=== PATIENT | male | born 1940 | race African-American/Black ===

== ENCOUNTER 2018-06-07 11:47 | Inpatient (IN) | payer MEDICARE ==
[2018-06-07 13:14] LABS: Basophils % (Auto) 0.2 % (0.0-1.8); Eosinophils # (Auto) 0.2 K/mm3 (0.0-0.4); Eosinophils % (Auto) 1.8 % (0.0-4.3); Hemoglobin 12.2 gm/dl (11.8-15.2); Lymphocytes # (Auto) 2.1 K/mm3 (1.2-5.4); Lymphocytes % (Auto) 21.5 % (13.4-35.0); Mean Corpuscular HGB Conc 34 % (32-34); Mean Corpuscular Volume 94 fl (84-94); Monocytes # (Auto) 0.5 K/mm3 (0.0-0.8); Monocytes % (Auto) 5.5 % (0.0-7.3); Platelet Count 290 K/mm3 (140-440); Red Blood Count 3.85 M/mm3 (3.65-5.03)
[2018-06-07 13:27] LABS: INR 0.91 (0.87-1.13)
[2018-06-07 13:28] LABS: Partial Thromboplastin Time 26.8 Sec. (24.2-36.6)
--- NOTE | 2018-06-07 13:41 | XRay Report ---
AP CHEST: HISTORY: Hypertension Borderline to mild cardiomegaly and small left pleural effusion are suspected. The lungs are clear otherwise. No evidence for pneumonia or pneumothorax. The bony structures are grossly intact. IMPRESSION: Borderline to mild cardiomegaly and small left pleural effusion.
--- NOTE | 2018-06-07 13:41 | Emergency Department Report ---
ED General Adult HPI - General Chief complaint: Weakness Stated complaint: GENERAL WEAKNESS Time Seen by Provider: 06/07/18 12:34 Source: EMS Mode of arrival: Stretcher Limitations: Altered Mental Status - History of Present Illness Initial comments: This is a 78 year old Syriac gentleman who does not speak Malaysian. History is obtained with the assistance of a events and promotions assistant. The patient apparently was waiting to be seen at [facility] when he became weak and apparently passed out. Thus, EMS was summoned. Paramedics arrived at the scene. They relate to me that the patient's blood pressure was about 40 systolic and his heart rate was likewise about 40. They state that they gave him one dose of atropine which improved both his heart rate to the mid 50s and blood pressure returned to the normal range. The patient arrives in the emergency department awake and alert. He is not complaining of any specific pain. He did have some nausea prior to arrival. He did not complain of any shortness of breath. It remains somewhat unclear as to why the patient was referred to cardiology to begin with. Family members and the patient can't exactly specify the indication. However he is noted to have a left bundle branch block which is of uncertain recency. Review of the available records indicate an outpatient visit in 2014 but no prior EKG. -: Sudden Severity scale (0 -10): 0 Consistency: now resolved Associated Symptoms: denies other symptoms - Related Data Allergies Allergy/AdvReac Type Severity Reaction Status Date / Time No Known Allergies Allergy Unverified 06/07/18 12:14 ED Review of Systems ROS: Stated complaint: GENERAL WEAKNESS Other details as noted in HPI Constitutional: denies: chills, fever Eyes: denies: eye pain, eye discharge, vision change ENT: denies: ear pain, throat pain Respiratory: denies: cough, shortness of breath, wheezing Cardiovascular: syncope. denies: chest pain, palpitations Endocrine: no symptoms reported Gastrointestinal: nausea. denies: abdominal pain, vomiting, diarrhea Genitourinary: denies: urgency, dysuria Musculoskeletal: denies: back pain, joint swelling, arthralgia Skin: denies: rash, lesions Neurological: denies: headache, weakness, paresthesias Psychiatric: denies: anxiety, depression Hematological/Lymphatic: denies: easy bleeding, easy bruising ED Past Medical Hx - Past Medical History Previous Medical History?: Yes Hx Hypertension: Yes Additional medical history: hyperlipidemia. LBBB - Surgical History Past Surgical History?: No - Social History Smoking Status: Never Smoker Substance Use Type: None ED Physical Exam - General Limitations: No Limitations General appearance: alert, in no apparent distress - Head Head exam: Present: atraumatic, normocephalic - Eye Eye exam: Present: normal appearance. Absent: scleral icterus - ENT ENT exam: Present: mucous membranes moist - Neck Neck exam: Present: normal inspection. Absent: tenderness, meningismus - Respiratory Respiratory exam: Present: normal lung sounds bilaterally. Absent: respiratory distress - Cardiovascular Cardiovascular Exam: Present: normal rhythm, bradycardia. Absent: systolic murmur, diastolic murmur, rubs, gallop - GI/Abdominal GI/Abdominal exam: Present: soft, normal bowel sounds. Absent: distended, tenderness, guarding, rebound, rigid - Rectal Rectal exam: Present: deferred - Extremities Exam Extremities exam: Present: normal inspection - Back Exam Back exam: Present: normal inspection - Neurological Exam Neurological exam: Present: alert, oriented X3, CN II-XII intact. Absent: motor sensory deficit - Psychiatric Psychiatric exam: Present: normal affect, normal mood - Skin Skin exam: Present: warm, dry, intact, normal color. Absent: rash ED Course Vital Signs 06/07/18 06/07/18 06/07/18 12:15 12:30 12:31 Temperature 97.4 F L 97.4 F L Pulse Rate 68 68 Respiratory 16 20 16 Rate Blood Pressure 130/55 Blood Pressure 130/55 [Left] O2 Sat by Pulse 100 100 Oximetry - Reevaluation(s) Reevaluation #1: Patient remains hemodynamically stable. Cardiology consultation with Dr. Whaley. Case was discussed. Patient will be admitted to Dr. Bro, the hospitalist. 06/07/18 14:09 Reevaluation #2: The patient was found to be hyperkalemic with a creatinine of 2.0 and a BUN of 37, potassium of 5.6. With the patient's left bundle-branch block and bradycardia, we will provide Kayexalate and I think he should be able to tolerate one amp of bicarbonate. In addition I will give him some slow IV fluid in the hopes to improve his prerenal condition. I will consult a nurse private duty. The patient will be admitted to Dr. Bro the hospitalist with cardiology consultation. 06/07/18 14:16 Reevaluation #3: It is a possibility patient has previously seen a nurse private duty but he does not recall the name. Dr. Phillip Manzo is his primary care provider. I was unable to reach anyone at Dr. Phillip Manzo's office however. Consultation will be obtained from the nurse private duty web production designer Dr. Rose. 06/07/18 14:22 06/07/18 14:22 ED Medical Decision Making - Lab Data Result diagrams: 06/07/18 12:50 06/07/18 12:50 Laboratory Results - last 24 hr 06/07/18 06/07/18 06/07/18 12:50 12:50 12:50 WBC 9.8 RBC 3.85 Hgb 12.2 Hct 36.0 MCV 94 MCH 32 MCHC 34 RDW 13.0 L Plt Count 290 Lymph % (Auto) 21.5 [place] % (Auto) 5.5 Eos % (Auto) 1.8 Baso % (Auto) 0.2 Lymph # 2.1 [place] # 0.5 Eos # 0.2 Baso # 0.0 Seg Neutrophils % 71.0 H Seg Neutrophils # 7.0 PT 12.7 INR 0.91 APTT 26.8 Plasma/Serum Alcohol < 0.01 Laboratory Results - last 24 hr 06/07/18 06/07/18 06/07/18 12:50 12:50 12:50 WBC 9.8 RBC 3.85 Hgb 12.2 Hct 36.0 MCV 94 MCH 32 MCHC 34 RDW 13.0 L Plt Count 290 Lymph % (Auto) 21.5 [place] % (Auto) 5.5 Eos % (Auto) 1.8 Baso % (Auto) 0.2 Lymph # 2.1 [place] # 0.5 Eos # 0.2 Baso # 0.0 Seg Neutrophils % 71.0 H Seg Neutrophils # 7.0 PT INR APTT Sodium 140 Potassium 5.6 H Chloride 107.4 H Carbon Dioxide 19 L Anion Gap 19 BUN 37 H Creatinine 2.0 H Estimated GFR 32 BUN/Creatinine Ratio 19 Glucose 92 POC Glucose Calcium 9.3 Magnesium Total Bilirubin 0.40 AST 20 ALT 16 Alkaline Phosphatase 52 Total Creatine Kinase CK-MB (CK-2) CK-MB (CK-2) Rel Index C-Reactive Protein NT-Pro-B Natriuret Pep Total Protein 6.0 L Albumin 4.1 Albumin/Globulin Ratio 2.2 TSH Free T4 Plasma/Serum Alcohol < 0.01 06/07/18 06/07/18 06/07/18 12:50 12:50 12:50 WBC RBC Hgb Hct MCV MCH MCHC RDW Plt Count Lymph % (Auto) [place] % (Auto) Eos % (Auto) Baso % (Auto) Lymph # [place] # Eos # Baso # Seg Neutrophils % Seg Neutrophils # PT 12.7 INR 0.91 APTT 26.8 Sodium Potassium Chloride Carbon Dioxide Anion Gap BUN Creatinine Estimated GFR BUN/Creatinine Ratio Glucose POC Glucose Calcium Magnesium 2.10 Total Bilirubin AST ALT Alkaline Phosphatase Total Creatine Kinase 68 CK-MB (CK-2) 1.7 CK-MB (CK-2) Rel Index 2.5 C-Reactive Protein NT-Pro-B Natriuret Pep 75.04 Total Protein Albumin Albumin/Globulin Ratio TSH 0.270 Free T4 1.36 Plasma/Serum Alcohol 06/07/18 06/07/18 12:50 14:02 WBC RBC Hgb Hct MCV MCH MCHC RDW Plt Count Lymph % (Auto) [place] % (Auto) Eos % (Auto) Baso % (Auto) Lymph # [place] # Eos # Baso # Seg Neutrophils % Seg Neutrophils # PT INR APTT Sodium Potassium Chloride Carbon Dioxide Anion Gap BUN Creatinine Estimated GFR BUN/Creatinine Ratio Glucose POC Glucose 94 Calcium Magnesium Total Bilirubin AST ALT Alkaline Phosphatase Total Creatine Kinase CK-MB (CK-2) CK-MB (CK-2) Rel Index C-Reactive Protein 0.30 NT-Pro-B Natriuret Pep Total Protein Albumin Albumin/Globulin Ratio TSH Free T4 Plasma/Serum Alcohol Laboratory Results - last 24 hr 06/07/18 06/07/18 06/07/18 12:50 12:50 12:50 WBC 9.8 RBC 3.85 Hgb 12.2 Hct 36.0 MCV 94 MCH 32 MCHC 34 RDW 13.0 L Plt Count 290 Lymph % (Auto) 21.5 [place] % (Auto) 5.5 Eos % (Auto) 1.8 Baso % (Auto) 0.2 Lymph # 2.1 [place] # 0.5 Eos # 0.2 Baso # 0.0 Seg Neutrophils % 71.0 H Seg Neutrophils # 7.0 PT INR APTT Sodium 140 Potassium 5.6 H Chloride 107.4 H Carbon Dioxide 19 L Anion Gap 19 BUN 37 H Creatinine 2.0 H Estimated GFR 32 BUN/Creatinine Ratio 19 Glucose 92 POC Glucose Calcium 9.3 Magnesium Total Bilirubin 0.40 AST 20 ALT 16 Alkaline Phosphatase 52 Total Creatine Kinase CK-MB (CK-2) CK-MB (CK-2) Rel Index C-Reactive Protein NT-Pro-B Natriuret Pep Total Protein 6.0 L Albumin 4.1 Albumin/Globulin Ratio 2.2 TSH Free T4 Urine Color Urine Turbidity Urine pH Ur Specific [place] Urine Protein Urine Glucose (UA) Urine Ketones Urine Blood Urine Nitrite Urine Bilirubin Urine Urobilinogen Ur Leukocyte Esterase Urine WBC (Auto) Urine RBC (Auto) U Epithel Cells (Auto) Urine Mucus Plasma/Serum Alcohol < 0.01 06/07/18 06/07/18 06/07/18 12:50 12:50 12:50 WBC RBC Hgb Hct MCV MCH MCHC RDW Plt Count Lymph % (Auto) [place] % (Auto) Eos % (Auto) Baso % (Auto) Lymph # [place] # Eos # Baso # Seg Neutrophils % Seg Neutrophils # PT 12.7 INR 0.91 APTT 26.8 Sodium Potassium Chloride Carbon Dioxide Anion Gap BUN Creatinine Estimated GFR BUN/Creatinine Ratio Glucose POC Glucose Calcium Magnesium 2.10 Total Bilirubin AST ALT Alkaline Phosphatase Total Creatine Kinase 68 CK-MB (CK-2) 1.7 CK-MB (CK-2) Rel Index 2.5 C-Reactive Protein NT-Pro-B Natriuret Pep 75.04 Total Protein Albumin Albumin/Globulin Ratio TSH 0.270 Free T4 1.36 Urine Color Urine Turbidity Urine pH Ur Specific [place] Urine Protein Urine Glucose (UA) Urine Ketones Urine Blood Urine Nitrite Urine Bilirubin Urine Urobilinogen Ur Leukocyte Esterase Urine WBC (Auto) Urine RBC (Auto) U Epithel Cells (Auto) Urine Mucus Plasma/Serum Alcohol 06/07/18 06/07/18 06/07/18 12:50 13:31 14:02 WBC RBC Hgb Hct MCV MCH MCHC RDW Plt Count Lymph % (Auto) [place] % (Auto) Eos % (Auto) Baso % (Auto) Lymph # [place] # Eos # Baso # Seg Neutrophils % Seg Neutrophils # PT INR APTT Sodium Potassium Chloride Carbon Dioxide Anion Gap BUN Creatinine Estimated GFR BUN/Creatinine Ratio Glucose POC Glucose 94 Calcium Magnesium Total Bilirubin AST ALT Alkaline Phosphatase Total Creatine Kinase CK-MB (CK-2) CK-MB (CK-2) Rel Index C-Reactive Protein 0.30 NT-Pro-B Natriuret Pep Total Protein Albumin Albumin/Globulin Ratio TSH Free T4 Urine Color Yellow Urine Turbidity Clear Urine pH 7.0 Ur Specific [place] 1.010 Urine Protein 30 mg/dl Urine Glucose (UA) Neg Urine Ketones Neg Urine Blood Neg Urine Nitrite Neg Urine Bilirubin Neg Urine Urobilinogen < 2.0 Ur Leukocyte Esterase Neg Urine WBC (Auto) 1.0 Urine RBC (Auto) < 1.0 U Epithel Cells (Auto) < 1.0 Urine Mucus Few Plasma/Serum Alcohol - EKG Data -: EKG Interpreted by In EKG shows normal: sinus rhythm Rate: bradycardia - EKG Data Interpretation: other (left bundle branch block) - Radiology Data Radiology results: report reviewed Mild cardiomegaly with small pericardial effusion. Critical care attestation.: If time is entered above; I have spent that time in minutes in the direct care of this critically ill patient, excluding procedure time. ED Disposition Clinical Impression: Hypotensive episode, Hyperkalemia, Renal insufficiency, Left bundle branch block (LBBB) Syncope Qualifiers: Syncope type: unspecified Qualified Code(s): R55 - Syncope and collapse Disposition: 09 OP ADMIT IP TO THIS HOSP Is pt being admited?: Yes Does the pt Need Aspirin: Yes Condition: Stable Instructions: Syncope (ED) Referrals: PRIMARY CARE, [Primary Care Provider] - 3-5 Days Time of Disposition: 14:50
[2018-06-07 13:44] LABS: Creatine Kinase MB 1.7 ng/mL (0.0-4.0)
--- NOTE | 2018-06-07 13:44 | Consultation ---
History of Present Illness Consult date: 06/07/18 Consult reason: chest pain History of present illness: 78-year-old patient who developed acute diaphoresis, hypotension and transient bradycardia while waiting in his doctor's office during a routine visit. He was treated with atropine by the linking machine operator, brought to the emergency room, ECG in the emergency room is in normal sinus rhythm with left bundle-branch block. The chronicity of his left bundle-branch block is uncertain, patient's records a re not available at this time he is a poor historian. Past History Past Medical History: other Medications and Allergies Allergies Allergy/AdvReac Type Severity Reaction Status Date / Time No Known Allergies Allergy Unverified 06/07/18 12:14 Review of Systems Cardiovascular: syncope Physical Examination Vital Signs Temp Pulse Resp BP Pulse Ox 97.4 F L 68 16 130/55 100 06/07/18 12:15 06/07/18 12:15 06/07/18 12:15 06/07/18 12:15 06/07/18 12:15 General appearance: no acute distress HEENT: Positive: PERRL Neck: Positive: neck supple Cardiac: Positive: Reg Rate and Rhythm Lungs: Positive: Decreased Breath Sounds Neuro: Positive: Grossly Intact Abdomen: Positive: Soft Male genitourinary: Positive: deferred Extremities: Absent: edema Results 06/07/18 12:50 Coagulation 06/07/18 Range/Units 12:50 PT 12.7 (12.2-14.9) Sec. INR 0.91 (0.87-1.13) APTT 26.8 (24.2-36.6) Sec. CBC 06/07/18 Range/Units 12:50 WBC 9.8 (4.5-11.0) K/mm3 RBC 3.85 (3.65-5.03) M/mm3 Hgb 12.2 (11.8-15.2) gm/dl Hct 36.0 (35.5-45.6) % Plt Count 290 (140-440) K/mm3 Lymph # 2.1 (1.2-5.4) K/mm3 [place] # 0.5 (0.0-0.8) K/mm3 Eos # 0.2 (0.0-0.4) K/mm3 Baso # 0.0 (0.0-0.1) K/mm3 EKG interpretations - Telemetry EKG Rhythm: Sinus Rhythm Assessment and Plan - Patient Problems (1) Syncope Current Visit: Yes Status: Acute Plan to address problem: Syncope appears historically vasovagal, patient is to be admitted for further cardiac workup, and review of his previous cardiac history. (2) Abnormal ECG Current Visit: Yes Status: Acute Plan to address problem: EKG is left bundle-branch block, uncertain chronicity. We will request old ECGs for comparative purposes. Further cardiac evaluation will depend on clinical course and the review of his prior cardiac evaluation.
[2018-06-07 13:47] LABS: Albumin 4.1 g/dL (3.9-5); Calcium 9.3 mg/dL (8.4-10.2)
[2018-06-07 13:51] LABS: Free T4 (Free Thyroxine) 1.36 ng/dL (0.76-1.46)
[2018-06-07 14:11] LABS: Bilirubin,Urine NEG (Negative); Blood,Urine NEG (Negative); Color,Urine Yellow (Yellow); Mucus,Urine FEW /HPF; RBC,Urine < 1.0 /HPF (0.0-6.0); Urobilinogen,Urine < 2.0 mg/dL (<2.0)
[2018-06-07] MEDS ORDERED: SODIUM BICARBONATE IV ONE ×2 (14:11→15:00)
[2018-06-07] MEDS ORDERED: NACL 0.9% 1000 ML 1,000 ML IV ONE (14:13)
[2018-06-07] MEDS ORDERED: KIONEX PO ONE (14:13)
[2018-06-07] MEDS ORDERED: BABY ASPIRIN PO ONE (14:50)
[2018-06-07 14:55] LABS: Amphetamine Screen,Urine PRESUMPTIVE NEGATIVE; Benzodiazepines Screen,Urine PRESUMPTIVE NEGATIVE; Cannabinoid Screen,Urine PRESUMPTIVE NEGATIVE; Cocaine Screen,Urine PRESUMPTIVE NEGATIVE; Methadone Screen,Urine PRESUMPTIVE NEGATIVE; Opiate Screen,Urine PRESUMPTIVE NEGATIVE
--- NOTE | 2018-06-07 15:15 | Cat Scan Report ---
CT HEAD WITHOUT CONTRAST: HISTORY: Syncope. TECHNIQUE: Sequential CT images without contrast. FINDINGS: Images obtained show bilateral prominence of the sulci and ventricles. There are no abnormal intra- or extra-axial blood or fluid collections. There are no focal masses or evidence of mass effect. The edwards white matter differentiation appears within normal limits. Regions of periventricular decreased attenuation are consistent with microangiopathic ischemic disease. The posterior fossa structures including the fourth ventricle, cerebellum, and brainstem appear normal. IMPRESSION: Evidence of atrophy and microangiopathic ischemic disease. No acute intracranial process noted.
[2018-06-07] MEDS ORDERED: ZOFRAN IV PRN ×2 (15:34→23:43)
[2018-06-07] MEDS ORDERED: TYLENOL PO PRN ×2 (15:34→23:43)
[2018-06-07] MEDS ORDERED: SODIUM CHLORIDE FLUSH SYRINGE 10 ML IV PRN ×2 (15:34→23:43)
[2018-06-07] MEDS ORDERED: PERCOCET 5/325 PO PRN (15:34)
--- NOTE | 2018-06-07 15:34 | History and Physical Report ---
History of Present Illness Date of examination: 06/07/18 Date of admission: 06/07/18 Chief complaint: Syncope in Bow Making Machine Operator office History of present illness: History of Present Illness: 78 y/o male sent from [facility] for passing out in their office associated with low BP and Low HR. Family of poor historians.Unclear why he went to [facility] for eval .He has HTN and HLD. No chest pain or SOB. Past Medical History Previous Medical History?: Yes Hx Hypertension: Yes Additional medical history: hyperlipidemia. LBBB Surgical History Past Surgical History?: No Social History Smoking Status: Never Smoker Substance Use Type: None Family Hx Htn Past History Past Medical History: other Medications and Allergies Allergies Allergy/AdvReac Type Severity Reaction Status Date / Time No Known Allergies Allergy Unverified 06/07/18 12:14 Home Medications Medication Instructions Recorded Confirmed Last Taken Type No Known Home Medications [No 06/08/18 06/08/18 Unknown History Reported Home Medications] Active Meds: Active Medications Sodium Chloride (Nacl 0.9% 1000 Ml) 1,000 mls @ 125 mls/hr IV ONCE ONE Stop: 06/07/18 22:12 Last Admin: 06/07/18 14:50 Dose: 125 mls/hr Documented by: Review of Systems Constitutional: no weight loss, no weight gain, no fever, no chills Ears, nose, mouth and throat: no hoarseness, no sore throat Cardiovascular: syncope, lightheadedness, no chest pain, no orthopnea, no palpitations, no rapid/irregular heart beat, no shortness of breath, no dyspnea on exertion, no paroxysmal nocturnal dyspnea Respiratory: no cough, no cough with sputum, no excessive sputum Gastrointestinal: no abdominal pain, no nausea, no vomiting, no diarrhea Genitourinary Male: no dysuria, no hematuria, no flank pain, no discharge, no urinary frequency Rectal: no pain Musculoskeletal: no neck stiffness, no neck pain, no shooting arm pain, no arm numbness/tingling Integumentary: no rash, no pruritis, no redness Neurological: syncope, no head injury, no transient paralysis, no paralysis, no seizures Psychiatric: no anxiety, no memory loss, no change in sleep habits, no sleep disturbances, no insomnia Endocrine: no cold intolerance, no heat intolerance, no polyphagia, no excessive thirst, no polydipsia, no polyuria Hematologic/Lymphatic: no easy bruising, no easy bleeding Allergic/Immunologic: no urticaria, no allergic rhinitis, no wheezing Exam - Constitutional Vitals: Temp Pulse Resp BP Pulse Ox 97.4 F L 68 16 130/55 100 06/07/18 12:30 06/07/18 12:30 06/07/18 12:31 06/07/18 12:30 06/07/18 12:30 General appearance: Present: no acute distress, well-nourished - EENT Eyes: Present: PERRL ENT: hearing intact, clear oral mucosa - Neck Neck: Present: supple, normal ROM - Respiratory Respiratory effort: normal Respiratory: bilateral: CTA - Cardiovascular Heart rate: 78 Rhythm: regular Heart Sounds: Present: S1 & S2. Absent: rub, click - Extremities Extremities: pulses symmetrical, No edema Peripheral Pulses: within normal limits - Abdominal General gastrointestinal: Present: soft, non-tender, non-distended, normal bowel sounds Male genitourinary: Present: normal - Rectal Rectal Exam: deferred - Integumentary Integumentary: Present: clear, warm, dry - Musculoskeletal Musculoskeletal: gait normal, strength equal bilaterally - Psychiatric Psychiatric: appropriate mood/affect, intact judgment & insight - Neurologic Neurologic: CNII-XII intact, moves all extremities - Allied Health Allied health notes reviewed: nursing, case management Results - Labs CBC & Chem 7: 06/08/18 05:05 06/08/18 05:20 Labs: Laboratory Last Values WBC 9.8 K/mm3 (4.5-11.0) 06/07/18 12:50 RBC 3.85 M/mm3 (3.65-5.03) 06/07/18 12:50 Hgb 12.2 gm/dl (11.8-15.2) 06/07/18 12:50 Hct 36.0 % (35.5-45.6) 06/07/18 12:50 MCV 94 fl (84-94) 06/07/18 12:50 MCH 32 pg (28-32) 06/07/18 12:50 MCHC 34 % (32-34) 06/07/18 12:50 RDW 13.0 % (13.2-15.2) L 06/07/18 12:50 Plt Count 290 K/mm3 (140-440) 06/07/18 12:50 Lymph % (Auto) 21.5 % (13.4-35.0) 06/07/18 12:50 [place] % (Auto) 5.5 % (0.0-7.3) 06/07/18 12:50 Eos % (Auto) 1.8 % (0.0-4.3) 06/07/18 12:50 Baso % (Auto) 0.2 % (0.0-1.8) 06/07/18 12:50 Lymph # 2.1 K/mm3 (1.2-5.4) 06/07/18 12:50 [place] # 0.5 K/mm3 (0.0-0.8) 06/07/18 12:50 Eos # 0.2 K/mm3 (0.0-0.4) 06/07/18 12:50 Baso # 0.0 K/mm3 (0.0-0.1) 06/07/18 12:50 Seg Neutrophils % 71.0 % (40.0-70.0) H 06/07/18 12:50 Seg Neutrophils # 7.0 K/mm3 (1.8-7.7) 06/07/18 12:50 ESR 23 mm/Hr (0-20) 06/07/18 12:50 PT 12.7 Sec. (12.2-14.9) 06/07/18 12:50 INR 0.91 (0.87-1.13) 06/07/18 12:50 APTT 26.8 Sec. (24.2-36.6) 06/07/18 12:50 Sodium 140 mmol/L (137-145) 06/07/18 12:50 Potassium 5.6 mmol/L (3.6-5.0) H 06/07/18 12:50 Chloride 107.4 mmol/L (98-107) H 06/07/18 12:50 Carbon Dioxide 19 mmol/L (22-30) L 06/07/18 12:50 Anion Gap 19 mmol/L 06/07/18 12:50 BUN 37 mg/dL (9-20) H 06/07/18 12:50 Creatinine 2.0 mg/dL (0.8-1.5) H 06/07/18 12:50 Estimated GFR 32 ml/min 06/07/18 12:50 BUN/Creatinine Ratio 19 % 06/07/18 12:50 Glucose 92 mg/dL (75-100) 06/07/18 12:50 POC Glucose 94 (70-105) 06/07/18 14:02 Calcium 9.3 mg/dL (8.4-10.2) 06/07/18 12:50 Magnesium 2.10 mg/dL (1.7-2.3) 06/07/18 12:50 Total Bilirubin 0.40 mg/dL (0.1-1.2) 06/07/18 12:50 AST 20 units/L (5-40) 06/07/18 12:50 ALT 16 units/L (7-56) 06/07/18 12:50 Alkaline Phosphatase 52 units/L (35-129) 06/07/18 12:50 Total Creatine Kinase 68 units/L (55-170) 06/07/18 12:50 CK-MB (CK-2) 1.7 ng/mL (0.0-4.0) 06/07/18 12:50 CK-MB (CK-2) Rel Index 2.5 (0-4) 06/07/18 12:50 C-Reactive Protein 0.30 mg/dL (0.00-1.30) 06/07/18 12:50 NT-Pro-B Natriuret Pep 75.04 pg/mL (0-900) 06/07/18 12:50 Total Protein 6.0 g/dL (6.3-8.2) L 06/07/18 12:50 Albumin 4.1 g/dL (3.9-5) 06/07/18 12:50 Albumin/Globulin Ratio 2.2 % 06/07/18 12:50 TSH 0.270 mlU/mL (0.270-4.200) 06/07/18 12:50 Free T4 1.36 ng/dL (0.76-1.46) 06/07/18 12:50 Urine Color Yellow (Yellow) 06/07/18 13:31 Urine Turbidity Clear (Clear) 06/07/18 13:31 Urine pH 7.0 (5.0-7.0) 06/07/18 13:31 Ur Specific [place] 1.010 (1.003-1.030) 06/07/18 13:31 Urine Protein 30 mg/dl mg/dL (Negative) 06/07/18 13:31 Urine Glucose (UA) Neg mg/dL (Negative) 06/07/18 13:31 Urine Ketones Neg mg/dL (Negative) 06/07/18 13:31 Urine Blood Neg (Negative) 06/07/18 13:31 Urine Nitrite Neg (Negative) 06/07/18 13:31 Urine Bilirubin Neg (Negative) 06/07/18 13:31 Urine Urobilinogen < 2.0 mg/dL (<2.0) 06/07/18 13:31 Ur Leukocyte Esterase Neg (Negative) 06/07/18 13:31 Urine WBC (Auto) 1.0 /HPF (0.0-6.0) 06/07/18 13:31 Urine RBC (Auto) < 1.0 /HPF (0.0-6.0) 06/07/18 13:31 U Epithel Cells (Auto) < 1.0 /HPF (0-13.0) 06/07/18 13:31 Urine Mucus Few /HPF 06/07/18 13:31 Urine Opiates Screen Presumptive negative 06/07/18 13:31 Urine Methadone Screen Presumptive negative 06/07/18 13:31 Ur Barbiturates Screen Presumptive negative 06/07/18 13:31 Ur Phencyclidine Scrn Presumptive negative 06/07/18 13:31 Ur Amphetamines Screen Presumptive negative 06/07/18 13:31 U Benzodiazepines Scrn Presumptive negative 06/07/18 13:31 Urine Cocaine Screen Presumptive negative 06/07/18 13:31 U Marijuana (THC) Screen Presumptive negative 06/07/18 13:31 Drugs of Abuse Note Disclamer 06/07/18 13:31 Plasma/Serum Alcohol < 0.01 % (0-0.07) 06/07/18 12:50 Short CBC 06/07/18 06/08/18 Range/Units 12:50 05:05 WBC 9.8 8.4 (4.5-11.0) K/mm3 Hgb 12.2 11.7 L (11.8-15.2) gm/dl Hct 36.0 34.1 L (35.5-45.6) % Plt Count 290 270 (140-440) K/mm3 BMP 06/07/18 06/08/18 12:50 05:20 Sodium 140 143 Potassium 5.6 H 4.7 Chloride 107.4 H 109.6 H Carbon Dioxide 19 L 23 BUN 37 H 28 H Creatinine 2.0 H 1.6 H Glucose 92 91 Calcium 9.3 8.4 Cardiac Enzymes 06/07/18 Range/Units 12:50 Total Creatine Kinase 68 (55-170) units/L CK-MB (CK-2) 1.7 (0.0-4.0) ng/mL Liver Function 06/07/18 06/08/18 Range/Units 12:50 05:20 Total Bilirubin 0.40 0.40 (0.1-1.2) mg/dL AST 20 19 (5-40) units/L ALT 16 13 (7-56) units/L Alkaline Phosphatase 52 45 (35-129) units/L Albumin 4.1 3.7 L (3.9-5) g/dL Urine 06/07/18 Range/Units 13:31 Urine Color Yellow (Yellow) Urine pH 7.0 (5.0-7.0) Ur Specific [place] 1.010 (1.003-1.030) Urine Protein 30 mg/dl (Negative) mg/dL Urine Glucose (UA) Neg (Negative) mg/dL - Imaging and Cardiology EKG: report reviewed Imaging and Cardiology: EKG SINUS RHYTHM HR 70/min LEFT BUNDLE BRANCH BLOCK CT Head IMPRESSION: Evidence of atrophy and microangiopathic ischemic disease. No acute intracranial process noted. CXr IMPRESSION: Borderline to mild cardiomegaly and small left pleural effusion. Assessment and Plan Advance Directives: Yes (Full code) - Patient Problems (1) Syncope Current Visit: Yes Status: Acute Qualifiers: Syncope type: unspecified Qualified Code(s): R55 - Syncope and collapse Plan to address problem: Probably vasovagal Syncope w/u including CDS ECHO and Lexiscan (2) Left bundle branch block (LBBB) Current Visit: Yes Status: Chronic (3) Hyperkalemia Current Visit: Yes Status: Acute Plan to address problem: Treated (4) NIECY (acute kidney injury) Current Visit: Yes Status: Acute Plan to address problem: IV Fluids foer now (5) HTN (hypertension) Current Visit: Yes Status: Chronic Plan to address problem: Initiate antihypertensives if necessary (6) DVT prophylaxis Current Visit: Yes Status: Acute Plan to address problem: on Lovenox
[2018-06-08] MEDS: NACL 0.9% 1000 ML 1,000 ML IV SCH (02:36)
[2018-06-08] MEDS: SODIUM CHLORIDE FLUSH SYRINGE 10 ML IV SCH ×4 (02:37→22:44)
[2018-06-08 05:37] LABS: Basophils % (Auto) 0.2 % (0.0-1.8); Eosinophils # (Auto) 0.2 K/mm3 (0.0-0.4); Eosinophils % (Auto) 2.4 % (0.0-4.3); Hematocrit 34.1 % (35.5-45.6); Hemoglobin 11.7 gm/dl (11.8-15.2); Lymphocytes # (Auto) 2.3 K/mm3 (1.2-5.4); Mean Corpuscular HGB Conc 35 % (32-34); Mean Corpuscular Volume 94 fl (84-94); Monocytes # (Auto) 0.6 K/mm3 (0.0-0.8); Monocytes % (Auto) 7.5 % (0.0-7.3); Platelet Count 270 K/mm3 (140-440); Red Blood Count 3.63 M/mm3 (3.65-5.03); Red Cell Distribution Width 13.2 % (13.2-15.2)
[2018-06-08 06:01] LABS: Albumin 3.7 g/dL (3.9-5)
[2018-06-08 06:04] LABS: Calcium 8.4 mg/dL (8.4-10.2)
[2018-06-08] MEDS ORDERED: LEXISCAN IV ONE ×2 (08:06→08:22)
--- NOTE | 2018-06-08 10:27 | Progress Note ---
Assessment and Plan 1. Syncope 2. Abnormal EKG, left bundle branch block 3. Acute kidney injury. Plan. Patient is currently responding to IV hydration with improvement in BUN and creatinine levels. Lexiscan MPI to rule out underlying ischemic coronary artery disease Subjective Date of service: 06/08/18 Principal diagnosis: Syncope Interval history: No cardiac symptoms Objective Vital Signs Temp Pulse Resp BP BP Pulse Ox 06/08/18 07:28 98.5 F 71 20 145/68 97 06/08/18 03:44 74 06/08/18 03:18 98.7 F 71 18 139/63 95 06/08/18 00:00 20 95 06/07/18 19:38 98.0 F 82 18 123/53 97 06/07/18 19:00 67 06/07/18 18:12 98.3 F 73 18 137/60 99 06/07/18 12:31 16 06/07/18 12:30 97.4 F L 68 20 130/55 100 06/07/18 12:15 97.4 F L 68 16 130/55 100 - Physical Examination General: Appears Well, No Apparent Distress HEENT: Positive: PERRL Neck: Positive: neck supple Cardiac: Lungs: Neuro: Positive: Grossly Intact Abdomen: Positive: Soft /Rectal: Normal Prostate, No Masses Skin: Musculoskeletal: No Fluid Collection, No Pain, Normal Range of Motion Gait: Normal Gait Extremities: Absent: edema - Labs and Meds Cardiac Enzymes 06/07/18 06/07/18 06/08/18 Range/Units 12:50 12:50 05:20 AST 20 19 (5-40) units/L CK-MB (CK-2) 1.7 (0.0-4.0) ng/mL Coagulation 06/07/18 Range/Units 12:50 PT 12.7 (12.2-14.9) Sec. INR 0.91 (0.87-1.13) APTT 26.8 (24.2-36.6) Sec. CBC 06/07/18 06/08/18 Range/Units 12:50 05:05 WBC 9.8 8.4 (4.5-11.0) K/mm3 RBC 3.85 3.63 L (3.65-5.03) M/mm3 Hgb 12.2 11.7 L (11.8-15.2) gm/dl Hct 36.0 34.1 L (35.5-45.6) % Plt Count 290 270 (140-440) K/mm3 Lymph # 2.1 2.3 (1.2-5.4) K/mm3 [place] # 0.5 0.6 (0.0-0.8) K/mm3 Eos # 0.2 0.2 (0.0-0.4) K/mm3 Baso # 0.0 0.0 (0.0-0.1) K/mm3 Comprehensive Metabolic Panel 06/07/18 06/08/18 Range/Units 12:50 05:20 Sodium 140 143 (137-145) mmol/L Potassium 5.6 H 4.7 (3.6-5.0) mmol/L Chloride 107.4 H 109.6 H (98-107) mmol/L Carbon Dioxide 19 L 23 (22-30) mmol/L BUN 37 H 28 H (9-20) mg/dL Creatinine 2.0 H 1.6 H (0.8-1.5) mg/dL Glucose 92 91 (75-100) mg/dL Calcium 9.3 8.4 (8.4-10.2) mg/dL AST 20 19 (5-40) units/L ALT 16 13 (7-56) units/L Alkaline Phosphatase 52 45 (35-129) units/L Total Protein 6.0 L 5.7 L (6.3-8.2) g/dL Albumin 4.1 3.7 L (3.9-5) g/dL - Imaging and Cardiology EKG: report reviewed
--- NOTE | 2018-06-08 11:48 | Consultation ---
History of Present Illness - Reason for Consult Consult date: 06/08/18 end stage renal disease Requesting physician: RAFAEL DEL RIO - History of Present Illness 78-year-old male with a history of hypertension and hyperlipidemia who was brought to the emergency room from [facility] office when he passed out and waiting room. Patient took his blood pressure medications that morning and did not eat breakfast. While in the waiting room he felt weak and then passed out. He felt nauseated on awakening and on evaluation by the paramedics, his heart rate was about 40s and systolic blood pressure was 40 mmHg. The patient was brought to the emergency room where his EKG showed normal normal sinus rhythm with a left bundle-branch block duration of which is unknown. BUN and creatinine were elevated at 37/2 mg/dL with potassium high at 5.6 mmol per liter. Bicarbonate was also low at 19 mmols/L. Patient denies any voiding difficulties. He hasn't been exposed to any radiocontrast. Past History Past Medical History: hypertension, hyperlipidemia, other Past Surgical History: No surgical history Social history: lives with family, alcohol abuse (occasional), other (retired from [employer]). denies: smoking, prescription drug abuse, IV drug use Family history: other (does not know the cause of of his parents. He has a brother who lives in [place] but he does not about his medical problems he has) Medications and Allergies Allergies Allergy/AdvReac Type Severity Reaction Status Date / Time No Known Allergies Allergy Unverified 06/07/18 12:14 Home Medications Medication Instructions Recorded Confirmed Last Taken Type No Known Home Medications [No 06/08/18 06/08/18 Unknown History Reported Home Medications] Active Meds: Active Medications Acetaminophen (Tylenol) 650 mg PO Q4H PRN PRN Reason: Pain MILD(1-3)/Fever >100.5/PHAM Sodium Chloride (Nacl 0.9% 1000 Ml) 1,000 mls @ 100 mls/hr IV DIRECT LESLI Last Admin: 06/08/18 02:36 Dose: 100 mls/hr Documented by: Ondansetron HCl (Zofran) 4 mg IV Q8H PRN PRN Reason: Nausea And Vomiting Oxycodone/Acetaminophen (Percocet 5/325) 1 tab PO Q6H PRN PRN Reason: Pain, Moderate (4-6) Pneumococcal Polyvalent Vaccine (Pneumovax 23) 0.5 ml IM .ONCE ONE Stop: 06/08/18 12:01 Sodium Chloride (Sodium Chloride Flush Syringe 10 Ml) 10 ml IV BID [facility] Last Admin: 06/08/18 02:37 Dose: 10 ml Documented by: Sodium Chloride (Sodium Chloride Flush Syringe 10 Ml) 10 ml IV PRN PRN PRN Reason: LINE FLUSH Sodium Chloride (Sodium Chloride Flush Syringe 10 Ml) 10 ml IV BID [facility] Sodium Chloride (Sodium Chloride Flush Syringe 10 Ml) 10 ml IV PRN PRN PRN Reason: LINE FLUSH Review of Systems All systems: negative (Constitutional: no fever or chills. No anorexia or weight loss. HEENT: No sore throat but admits to sinus drainage. No hearing or vision impairment . Cardiovascular: No chest pain, shortness of breath, palpitations, lower extremity swelling or dizziness. Respiratory: No cough, sputum, shortness of breath, hemoptysis or wheezing. Gastrointestinal: No nausea, vomiting, diarrhea, abdominal pain, hematemesis or melena. Genitourinary: No frequency urgency dysuria or hematuria. hematologic: No abnormal bleeding or bruising. Integumentary: Admits to itching which she attributes to dry skin. No rash. Neurological: Admits to headache. Complains of right arm numbness. No focal weakness., no syncope or seizures. Musculoskeletal: Admits to pain and stiffness of the right shoulder worse on abduction Psychiatry: no anxiety or depression) Exam - Vital Signs Vital signs: Vital Signs Temp Pulse Resp BP Pulse Ox 97.4 F L 68 16 130/55 100 06/07/18 12:15 06/07/18 12:15 06/07/18 12:15 06/07/18 12:15 06/07/18 12:15 - Physical Exam Narrative exam: Elderly male lying in bed in no acute distress HEENT: NCAT, pink oral mucous membrane Neck: Supple, no venous distention CVS: S1S2 RRR with no murmur, rub or gallop Chest: Clear to auscultation Abdomen: Protuberant, soft, nontender, no organomegaly, bowel sounds are present Extremities: No edema Skin warm and dry, no rash Genitourinary: Deferred Neuro: Awake, alert no focal deficits Results - Lab Results 06/08/18 05:05 06/08/18 05:20 Most recent lab results Calcium 8.4 mg/dL (8.4-10.2) 06/08/18 05:20 Magnesium 2.10 mg/dL (1.7-2.3) 06/07/18 12:50 Assessment and Plan - Patient Problems (1) Chronic kidney disease Current Visit: Yes Status: Acute Plan to address problem: Patient may well have chronic kidney disease presumably secondary to hypertensive nephrosclerosis. Follow-up kidney ultrasound and urine studies. (2) NIECY (acute kidney injury) Current Visit: Yes Status: Acute Plan to address problem: Acute kidney injury probably prerenal azotemia versus acute tubular necrosis secondary to hypotension. Kidney function improving with volume repletion. Patient can be discharged home and will follow-up kidney function in the outpatient clinic next week (3) Hyperkalemia Current Visit: Yes Status: Acute Plan to address problem: Potassium improved (4) Syncope Current Visit: Yes Status: Acute Qualifiers: Syncope type: unspecified Qualified Code(s): R55 - Syncope and collapse Plan to address problem: Secondary to hypotension. Being evaluated by eyelet punch operator (5) HTN (hypertension) Current Visit: Yes Status: Chronic Plan to address problem: History of hypertension. Blood pressure was low on presentation now improving. Follow blood pressure and we may need to resume antihypertensive medications if it increases further
[2018-06-08] MEDS ORDERED: PNEUMOVAX 23 IM ONE (12:00)
--- NOTE | 2018-06-08 12:18 | Event Note ---
Date: 06/08/18 Stress Lexiscan MPI. Normal myocardial perfusion scan images.
--- NOTE | 2018-06-08 14:35 | Progress Note ---
Assessment and Plan Assessment and plan: Syncope and collapse - Due to hypotension and bradycardia - Resolved after he was given IV fluid Cardiology consulted - Did Stress test which was negative and echo is pending Acute versus chronic kidney disease - Nephrology is following - Likely due to blood pressure Hypertension - Currently patient is hypotensive DVT prophylaxis - On heparin Disposition - Continue inpatient care - Possible discharge tomorrow History Interval history: Patient was seen and evaluated this morning, a lot of family members was in the room when I examined him. Patient is feeling better, No dizziness or SOB. Hospitalist Physical - Physical exam Narrative exam: Not in cardiopulmonary distress. The patient appeared well nourished and normally developed. Vital signs as documented. Head exam is unremarkable. No scleral icterus . Neck is without jugular venous distension, thyromegaly, or carotid bruits. Lungs are clear to auscultation. Cardiac exam reveals regular rate and Rhythm. Abdominal exam reveals normal bowel sounds. Extremities are nonedematous. SHIFT PRODUCTION SUPERVISOR: Alert and oriented 3. No focal weakness. - Constitutional Vitals: Temp Pulse Resp BP Pulse Ox 98.0 F 79 20 125/60 96 06/08/18 13:21 06/08/18 13:21 06/08/18 13:21 06/08/18 13:21 06/08/18 13:21 General appearance: Present: no acute distress, well-nourished Results - Labs CBC & Chem 7: 06/08/18 05:05 06/08/18 05:20 Labs: Laboratory Last Values WBC 8.4 K/mm3 (4.5-11.0) 06/08/18 05:05 RBC 3.63 M/mm3 (3.65-5.03) L 06/08/18 05:05 Hgb 11.7 gm/dl (11.8-15.2) L 06/08/18 05:05 Hct 34.1 % (35.5-45.6) L 06/08/18 05:05 MCV 94 fl (84-94) 06/08/18 05:05 MCH 32 pg (28-32) 06/08/18 05:05 MCHC 35 % (32-34) H 06/08/18 05:05 RDW 13.2 % (13.2-15.2) 06/08/18 05:05 Plt Count 270 K/mm3 (140-440) 06/08/18 05:05 Lymph % (Auto) 27.0 % (13.4-35.0) 06/08/18 05:05 [place] % (Auto) 7.5 % (0.0-7.3) H 06/08/18 05:05 Eos % (Auto) 2.4 % (0.0-4.3) 06/08/18 05:05 Baso % (Auto) 0.2 % (0.0-1.8) 06/08/18 05:05 Lymph # 2.3 K/mm3 (1.2-5.4) 06/08/18 05:05 [place] # 0.6 K/mm3 (0.0-0.8) 06/08/18 05:05 Eos # 0.2 K/mm3 (0.0-0.4) 06/08/18 05:05 Baso # 0.0 K/mm3 (0.0-0.1) 06/08/18 05:05 Seg Neutrophils % 62.9 % (40.0-70.0) 06/08/18 05:05 Seg Neutrophils # 5.3 K/mm3 (1.8-7.7) 06/08/18 05:05 ESR 23 mm/Hr (0-20) 06/07/18 12:50 PT 12.7 Sec. (12.2-14.9) 06/07/18 12:50 INR 0.91 (0.87-1.13) 06/07/18 12:50 APTT 26.8 Sec. (24.2-36.6) 06/07/18 12:50 Sodium 143 mmol/L (137-145) 06/08/18 05:20 Potassium 4.7 mmol/L (3.6-5.0) 06/08/18 05:20 Chloride 109.6 mmol/L (98-107) H 06/08/18 05:20 Carbon Dioxide 23 mmol/L (22-30) 06/08/18 05:20 Anion Gap 15 mmol/L 06/08/18 05:20 BUN 28 mg/dL (9-20) H 06/08/18 05:20 Creatinine 1.6 mg/dL (0.8-1.5) H 06/08/18 05:20 Estimated GFR 42 ml/min 06/08/18 05:20 BUN/Creatinine Ratio 18 % 06/08/18 05:20 Glucose 91 mg/dL (75-100) 06/08/18 05:20 POC Glucose 94 (70-105) 06/07/18 14:02 Hemoglobin A1c 6.3 % (4-6) H 06/07/18 12:50 Calcium 8.4 mg/dL (8.4-10.2) 06/08/18 05:20 Magnesium 2.10 mg/dL (1.7-2.3) 06/07/18 12:50 Total Bilirubin 0.40 mg/dL (0.1-1.2) 06/08/18 05:20 AST 19 units/L (5-40) 06/08/18 05:20 ALT 13 units/L (7-56) 06/08/18 05:20 Alkaline Phosphatase 45 units/L (35-129) 06/08/18 05:20 Total Creatine Kinase 68 units/L (55-170) 06/07/18 12:50 CK-MB (CK-2) 1.7 ng/mL (0.0-4.0) 06/07/18 12:50 CK-MB (CK-2) Rel Index 2.5 (0-4) 06/07/18 12:50 Troponin T < 0.010 ng/mL (0.00-0.029) 06/08/18 12:58 C-Reactive Protein 0.30 mg/dL (0.00-1.30) 06/07/18 12:50 NT-Pro-B Natriuret Pep 75.04 pg/mL (0-900) 06/07/18 12:50 Total Protein 5.7 g/dL (6.3-8.2) L 06/08/18 05:20 Albumin 3.7 g/dL (3.9-5) L 06/08/18 05:20 Albumin/Globulin Ratio 1.9 % 06/08/18 05:20 TSH 0.270 mlU/mL (0.270-4.200) 06/07/18 12:50 Free T4 1.36 ng/dL (0.76-1.46) 06/07/18 12:50 Urine Color Yellow (Yellow) 06/07/18 13:31 Urine Turbidity Clear (Clear) 06/07/18 13:31 Urine pH 7.0 (5.0-7.0) 06/07/18 13:31 Ur Specific [place] 1.010 (1.003-1.030) 06/07/18 13:31 Urine Protein 30 mg/dl mg/dL (Negative) 06/07/18 13:31 Urine Glucose (UA) Neg mg/dL (Negative) 06/07/18 13:31 Urine Ketones Neg mg/dL (Negative) 06/07/18 13:31 Urine Blood Neg (Negative) 06/07/18 13:31 Urine Nitrite Neg (Negative) 06/07/18 13:31 Urine Bilirubin Neg (Negative) 06/07/18 13:31 Urine Urobilinogen < 2.0 mg/dL (<2.0) 06/07/18 13:31 Ur Leukocyte Esterase Neg (Negative) 06/07/18 13:31 Urine WBC (Auto) 1.0 /HPF (0.0-6.0) 06/07/18 13:31 Urine RBC (Auto) < 1.0 /HPF (0.0-6.0) 06/07/18 13:31 U Epithel Cells (Auto) < 1.0 /HPF (0-13.0) 06/07/18 13:31 Urine Mucus Few /HPF 06/07/18 13:31 Urine Opiates Screen Presumptive negative 06/07/18 13:31 Urine Methadone Screen Presumptive negative 06/07/18 13:31 Ur Barbiturates Screen Presumptive negative 06/07/18 13:31 Ur Phencyclidine Scrn Presumptive negative 06/07/18 13:31 Ur Amphetamines Screen Presumptive negative 06/07/18 13:31 U Benzodiazepines Scrn Presumptive negative 06/07/18 13:31 Urine Cocaine Screen Presumptive negative 06/07/18 13:31 U Marijuana (THC) Screen Presumptive negative 06/07/18 13:31 Drugs of Abuse Note Disclamer 06/07/18 13:31 Plasma/Serum Alcohol < 0.01 % (0-0.07) 06/07/18 12:50
[2018-06-08] MEDS: HEPARIN SUB-Q SCH (22:40)
[2018-06-09 03:25] LABS: Calcium 8.5 mg/dL (8.4-10.2)
[2018-06-09] MEDS: SODIUM CHLORIDE FLUSH SYRINGE 10 ML IV SCH (07:32)
[2018-06-09] MEDS: NACL 0.9% 1000 ML 1,000 ML IV SCH (07:32)
--- NOTE | 2018-06-09 09:52 | Progress Note ---
Assessment and Plan 1. Syncope 2. Abnormal EKG, left bundle branch block 3. Acute kidney injury improving Plan. Patient is currently responding to IV hydration with improvement in BUN and creatinine levels. Lexiscan MPI negative Subjective Date of service: 06/09/18 Principal diagnosis: Syncope Interval history: No cardiac symptoms Objective Vital Signs Temp Pulse Pulse Resp BP Pulse Ox 06/09/18 08:44 98.5 F 81 14 149/82 95 06/09/18 03:22 98.6 F 77 20 148/76 95 06/08/18 20:13 75 94 06/08/18 20:12 97.3 F L 20 144/69 06/08/18 15:38 85 14 96 06/08/18 13:21 98.0 F 79 20 125/60 96 06/08/18 10:26 86 139/70 06/08/18 10:25 89 139/69 06/08/18 10:24 90 129/69 06/08/18 10:23 85 113/66 06/08/18 10:22 90 113/66 06/08/18 10:21 100 H 160/80 06/08/18 10:15 73 160/80 06/08/18 10:00 85 - Physical Examination General: Appears Well, No Apparent Distress HEENT: Positive: PERRL Neck: Positive: neck supple Cardiac: Positive: Regular Rate, S1/S2, S4, Laterally Displaced Lungs: Positive: clear to auscultation, No Wheeze, Rales, Rhonchi Neuro: Positive: Grossly Intact Abdomen: Positive: Soft /Rectal: Normal Prostate, No Masses Skin: Musculoskeletal: No Fluid Collection, No Pain, Normal Range of Motion Gait: Normal Gait Extremities: Absent: edema - Labs and Meds Comprehensive Metabolic Panel 06/09/18 Range/Units 02:16 Sodium 141 (137-145) mmol/L Potassium 4.4 (3.6-5.0) mmol/L Chloride 106.5 (98-107) mmol/L Carbon Dioxide 23 (22-30) mmol/L BUN 24 H (9-20) mg/dL Creatinine 1.5 (0.8-1.5) mg/dL Glucose 90 (75-100) mg/dL Calcium 8.5 (8.4-10.2) mg/dL - Imaging and Cardiology EKG: report reviewed
[2018-06-09] MEDS: HEPARIN SUB-Q SCH (10:00)
--- NOTE | 2018-06-09 11:39 | Discharge Summary ---
Providers - Providers Date of Admission: 06/07/18 14:50 Attending physician: MARIALUISA ANNE MD 06/07/18 14:01 Consult to Physician [CONS] Urgent Comment: DR JAY NOTIFIED Consulting Provider: ENOC JAY Physician Instructions: Reason For Exam: syncopal episode, bradycardia, left bundle branch 06/07/18 14:26 Consult to Physician [CONS] Urgent Comment: DR TORO NOTIFIED 1515 Consulting Provider: JUMANA TORO Physician Instructions: Reason For Exam: hyperkalemia, renal insufficiency Primary care physician: MIDDLE CARD TENDER Hospitalization Reason for admission: Syncope, NIECY, hypotension Condition: Stable Pertinent studies: Stress test; negative for acute ischemia Echo; EF 50-55% Hospital course: History of Present Illness: 78 y/o male sent from [facility] for passing out in their office associated with low BP and Low HR. Patient is poor historians. Unclear why he went to [facility] for eval. He has HTN and HLD. No chest pain or SOB. Patient was admitted and was given IVF, acute renal failure resolved, stress test, and echo was done remarks were unremarkable. Patient was hemodynamically stable at the time of discharge. Cardiology clear him for discharge. Disposition: - TO HOME OR SELFCARE Time spent for discharge: 32 minutes - Discharge Diagnoses (1) NIECY (acute kidney injury) Status: Acute (2) Abnormal ECG Status: Acute (3) Hypotensive episode Status: Acute (4) Renal insufficiency Status: Acute (5) Syncope Status: Acute Qualifiers: Syncope type: unspecified Qualified Code(s): R55 - Syncope and collapse (6) Left bundle branch block (LBBB) Status: Chronic Core Measure Documentation - Palliative Care Palliative Care/ Comfort Measures: Not Applicable - Core Measures Any of the following diagnoses?: none Exam - Physical Exam Narrative exam: Not in cardiopulmonary distress. The patient appeared well nourished and normally developed. Vital signs as documented. Head exam is unremarkable. No scleral icterus . Neck is without jugular venous distension, thyromegaly, or carotid bruits. Lungs are clear to auscultation. Cardiac exam reveals regular rate and Rhythm. Abdominal exam reveals normal bowel sounds. Extremities are nonedematous. ACADEMIC REGISTRAR: Alert and oriented 3. No focal weakness. - Constitutional Vitals: Temp Pulse Resp BP Pulse Ox 98.5 F 81 14 149/82 95 06/09/18 08:44 06/09/18 08:44 06/09/18 08:44 06/09/18 08:44 06/09/18 08:44 Plan Activity: no restrictions Weight Bearing Status: Full Weight Bearing Diet: regular Follow up with: PRIMARY CARE,MD [Primary Care Provider] - 3-5 Days IDRIS ALCOCER MD [Staff Physician] - 7 Days (Dr Alcocer said he will give him event monitor while he went for follow up.)
[2018-06-09 13:15] VITALS: BP 152/87
--- NOTE | 2018-06-12 15:57 | Query- Renal Failure ---
Deasage Benz___Iqra Date:___06/12/2018 [employer]/CDS:__Aniyah/Maggie Phone#:___[phone] Exercise your independent professional judgment when responding to query. Questions asked do not imply a particular answer is desired or expected. We greatly appreciate your clarification on this issue. Clinical Documentation States: 78 y/o male sent from [facility] for passing out in their office associated with low BP and Low HR. The Nephrology consult note stated "(2) NIECY (acute kidney injury) Current Visit: Yes Status: Acute Plan to address problem: Acute kidney injury probably prerenal azotemia versus acute tubular necrosis secondary to hypotension. Kidney function improving with volume repletion. Patient can be discharged home and will follow-up kidney function in the outpatient clinic next week." Clinical Findings Show: Creatinine 06/07 2.0 06/08 1.6 06/09 1.5 Please clarify if: Acute Renal Failure with or due to: [ ] Tubular Necrosis [ ] Medullary Necrosis [x ] Vasomotor Nephropathy [ ] Shock Kidney [ ] Tubular Nephrosis [ ] Renal Tubular Stasis [ ] Cortical Necrosis [ ] Acute Renal Failure (unspecified) [ ] Lower Tubular Nephrosis [ ] Other: [ ] Not Applicable Present on Admission: [ x] Yes (Y) [ ] Clinically undeterminable (W) [ ] No (N) Please also document response in your Progress Notes and/or Discharge Summary and indicate if the condition was present on admission. UMBERTO
--- NOTE | 2018-06-20 21:04 | Treadmill Report ---
THALLIUM STRESS TEST REPORT LEFT VENTRICLE: Left ventricular chamber size is within normal spread. Perfusion study demonstrates evidence of diaphragmatic attenuation artifact, otherwise no significant perfusion defects identified. Gated analysis demonstrates normal left ventricular systolic function, ejection fraction of 74%. CONCLUSION: No demonstrable ischemia on thallium perfusion imaging. Negative study. JOB# [id number] CA/NTS
== END 2018-06-09 13:15 | disposition home or self-care (01) | DRG 314 ==
LOC: ED 11:47 → 2B-ACE 14:50
PROVIDERS: ADMIT Internal Medicine; ATTEND Internal Medicine
PROC: 3E0234Z Introduction of Serum, Toxoid and Vaccine into Muscle, Percutaneous Approach (ICD-10-PCS; principal; 2018-06-08)
DX: I95.9 Hypotension, unspecified (principal); N17.0 Acute kidney failure with tubular necrosis; R55 Syncope and collapse; I44.7 Left bundle-branch block, unspecified; E87.5 Hyperkalemia; I10 Essential (primary) hypertension; F10.10 Alcohol abuse, uncomplicated; Y90.0 Blood alcohol level of less than 20 mg/100 ml; R00.1 Bradycardia, unspecified; I12.9 Hypertensive chronic kidney disease with stage 1 through stage 4 chronic kidney disease, or unspecified chronic kidney disease; N18.9 Chronic kidney disease, unspecified; Z82.49 Family history of ischemic heart disease and other diseases of the circulatory system; Z23 Encounter for immunization
CPT/HCPCS: 36415; 70450; 71045; 78452; 80048; 80053; 80307; 80320; 81001; 82550; 82553; 82962; 83036; 83735; 83880; 84439; 84443; 84484; 85025; 85610; 85652; 85730; 86140; 90732; 93005; 93010; 93017; 93306; 96360; G0378; A9502; G0480; J1644; J2785; J7030